=== PATIENT | female | born 1955 | race Two or more races ===

== ENCOUNTER 2018-04-25 14:15 | Inpatient (IN) | payer OTHER ==
[~2018-04-25] VITALS: Ht 149.9 cm; Wt 42.2 kg
[2018-04-29] MEDS ORDERED: SYNTHROID50 MCG PO (09:56)
[2018-04-29] MEDS ORDERED: FENOFIBRATE160 MG PO (09:56)
[2018-04-29] MEDS ORDERED: CALTRATE 600+D1 EAC1 PO (09:56)
[2018-04-29] MEDS ORDERED: VITAMIN D310000 UNIT PO (09:57)
== END 2018-05-06 10:47 | disposition home or self-care (01) | DRG 331 ==
LOC: O/R 05-02 05:25 → RECOVERY 05-02 07:00 → SURH 05-02 15:34
PROVIDERS: Colon & Rectal Surgery
PROC: 0DTP4ZZ Resection of Rectum, Percutaneous Endoscopic Approach (ICD-10-PCS; 2018-05-02)
PROC: 0DJD8ZZ Inspection of Lower Intestinal Tract, Via Natural or Artificial Opening Endoscopic (ICD-10-PCS; 2018-05-02)
PROC: 0DTN4ZZ Resection of Sigmoid Colon, Percutaneous Endoscopic Approach (ICD-10-PCS; principal; 2018-05-02 07:00)
PROC: 30233N1 Transfusion of Nonautologous Red Blood Cells into Peripheral Vein, Percutaneous Approach (ICD-10-PCS; 2018-05-04)
DX: K57.32 Diverticulitis of large intestine without perforation or abscess without bleeding (principal); D64.89 Other specified anemias

== ENCOUNTER 2018-05-16 16:06 | Emergency (ER) | payer OTHER ==
[~2018-05-16] VITALS: Ht 149.9 cm; Wt 42.2 kg
[~2018-05-16 16:06] MED LIST: CALTRATE 600+D1 EAC1 PO; FENOFIBRATE160 MG PO; SYNTHROID50 MCG PO; VITAMIN D310000 UNIT PO
== END 2018-05-16 20:18 | disposition home or self-care (01) ==
LOC: ER 16:06
DX: T81.31XA Disruption of external operation (surgical) wound, not elsewhere classified, initial encounter (principal)